=== PATIENT | male | born 1960 | race Caucasian/White ===

== ENCOUNTER 2023-12-14 08:41 | Emergency (ER) | payer OTHER ==
[~2023-12-14] VITALS: Ht 175.3 cm; Wt 93.2 kg
[2023-12-14] MEDS ORDERED: NITR0.4S14 SL (09:41)
[2023-12-14] MEDS ORDERED: METO1TAB7 PO (09:41)
[2023-12-14] MEDS ORDERED: GABA-282 PO (09:41)
[2023-12-14] MEDS ORDERED: SOLI10TA PO (09:41)
[2023-12-14] MEDS ORDERED: VITA250T7 PO (09:41)
[2023-12-14] MEDS ORDERED: VITA100093 PO (09:41)
[2023-12-14] MEDS ORDERED: SERT50TA29 PO (09:41)
[2023-12-14] MEDS ORDERED: SEMA1.7P (09:41)
[2023-12-14] MEDS ORDERED: ASPI81CH33 PO (09:42)
[2023-12-14] MEDS ORDERED: FLUT15.820 NARES (09:42)
[2023-12-14] MEDS ORDERED: ALIR75PE3 SC (09:43)
[2023-12-14 09:50] LABS: BASO % 0.1 % (0.0-1.0); EOS # 0.1 10^3/uL (0.0-0.5); EOS % 1.1 % (0.0-3.0); HEMATOCRIT 42.9 % (42.0-52.0); HEMOGLOBIN 14.5 g/dl (13.5-17.5); LYMPH # 0.8 10^3/uL (1.5-5.0); LYMPH % 9.7 % (24.0-44.0); MEAN CORPUSCULAR HEMOGLOBIN 29.5 pg (27.0-33.0); MEAN CORPUSCULAR HGB CONC 33.8 g/dl (32.0-36.5); MEAN CORPUSCULAR VOLUME 87.4 fl (80.0-96.0); MONO # 0.7 10^3/uL (0.0-0.8); MONO % 7.8 % (2.0-8.0); NEUTROPHILS # 6.7 10^3/uL (1.5-8.5); NEUTROPHILS % 80.8 % (36.0-66.0); PLATELET COUNT, AUTOMATED 193 10^3/uL (150-450); RED BLOOD COUNT 4.91 10^6/uL (4.30-6.10); WHITE BLOOD COUNT 8.3 10^3/uL (4.0-10.0)
[2023-12-14 10:06] LABS: ALBUMIN 4.1 G/DL (3.2-5.2); ALKALINE PHOSPHATASE 74 U/L (46-116); ALT/SGPT 22 U/L (7.0-40); AST/SGOT 14 U/L (<34); BILIRUBIN,DIRECT 0.2 MG/DL (<0.4); BILIRUBIN,TOTAL 0.6 MG/DL (0.3-1.2); BLOOD UREA NITROGEN 21 MG/DL (9-23); CARBON DIOXIDE LEVEL 26 MMOL/L (20-31); CHLORIDE LEVEL 106 MMOL/L (98-107); CK-MB VALUE MASS < 1.0 NG/ML (<3.6); CPK CREATINE PHOSPHOKINASE 123 U/L (46-171); CREATININE FOR GFR 1.01 MG/DL (0.70-1.30); GLOMERULAR FILTRATION RATE > 60.0 (>49); GLUCOSE, FASTING 93 MG/DL (74-106); MB/CK RELATIVE INDEX 0.81 (< OR =4); POTASSIUM SERUM 4.7 MMOL/L (3.5-5.1); SODIUM LEVEL 140 MMOL/L (136-145); TOTAL PROTEIN 7.1 G/DL (5.7-8.2)
[2023-12-14 10:09] LABS: THYROID STIMULATING HORMONE 1.685 uIU/ML (0.55-4.78)
[2023-12-14 10:10] LABS: INR 1.02; PARTIAL THROMBOPLASTIN TIME 22.5 SECONDS (24.8-34.2); PROTHROMBIN TIME 13.1 SECONDS (12.5-14.5)
[2023-12-14 10:11] LABS: FREE T4 1.19 NG/DL (0.89-1.76)
[2023-12-14] MEDS ORDERED: SEMA1.7P SQ (11:19)
[2023-12-14] MEDS ORDERED: HOME MED LIST COMPLETE! XX SCH (11:20)
[2023-12-14] MEDS ORDERED: IBUP1TAB7 PO (11:22)
[2023-12-14 11:24] LABS: CK-MB VALUE MASS < 1.0 NG/ML (<3.6)
[2023-12-14 11:25] LABS: CPK CREATINE PHOSPHOKINASE 117 U/L (46-171); MB/CK RELATIVE INDEX 0.85 (< OR =4)
[2023-12-14 13:50] VITALS: BP 123/67; TEMP 98.4; O2SAT 96
== END 2023-12-14 14:07 | disposition home or self-care (01) ==
LOC: M ED 08:41
DX: R55 Syncope and collapse (principal); I48.91 Unspecified atrial fibrillation; I25.2 Old myocardial infarction; I25.119 Atherosclerotic heart disease of native coronary artery with unspecified angina pectoris; Z88.8 Allergy status to other drugs, medicaments and biological substances; Z79.899 Other long term (current) drug therapy; Z79.1 Long term (current) use of non-steroidal anti-inflammatories (NSAID)